=== PATIENT | male | born 1985 | race Caucasian/White ===

== ENCOUNTER 2017-01-24 17:25 | Emergency (ER) | payer MEDICAID ==
[2017-01-24] MEDS ORDERED: MAG HYDROX/AL HYDROX/SIMETH 30 ML UDC PO STA (18:25)
[2017-01-24] MEDS ORDERED: HYDROmorphone 1 MG/ML SYRINGE IVP STA (18:25)
[2017-01-24] MEDS ORDERED: DIPHENOX/ATROPINE 2.5/0.025 MG TABLET PO STA (18:25)
[2017-01-24] MEDS ORDERED: SODIUM CHLORIDE 0.9% 1,000 ML IV ONE ×2 (18:25→18:28)
[2017-01-24] MEDS ORDERED: ONDANSETRON 4 MG/2 ML VIAL IVP STA (18:25)
[2017-01-24] MEDS ORDERED: KETOROLAC 60 MG/2 ML VIAL IVP STA (18:25)
[2017-01-24] MEDS ORDERED: KETOROLAC 30 MG/ML VIAL ONE (18:34)
[2017-01-24] MEDS ORDERED: HYDROmorphone 1 MG/ML SYRINGE ONE (18:34)
[2017-01-24] MEDS ORDERED: MAG HYDROX/AL HYDROX/SIMETH 30 ML UDC ONE (18:35)
[2017-01-24] MEDS ORDERED: ONDANSETRON 4 MG/2 ML VIAL ONE (18:35)
[2017-01-24] MEDS ORDERED: DIPHENOX/ATROPINE 2.5/0.025 MG TABLET PO ONE (18:35)
[2017-01-24] MEDS ORDERED: HYDROcod/ACET 5/325 Prepack 6 PO ONE ×2 (20:45→21:10)
[2017-01-24] MEDS ORDERED: ONDANSETRON ODT 4 MG Prepack 2 TL PRN (20:45)
[2017-01-24] MEDS ORDERED: DEXAMETHASONE 10 MG/ML VIAL IVP STA (21:06)
[2017-01-24] MEDS ORDERED: ONDANSETRON ODT 4 MG Prepack 2 TL ONE (21:10)
== END 2017-01-24 21:22 | disposition home or self-care (01) ==
DX: E86.0 Dehydration (principal); R07.89 Other chest pain; J06.9 Acute upper respiratory infection, unspecified
CPT/HCPCS: 36415; 71020; 76705; 80053; 83690; 96361; 96374; 96375; 99283; 99284; A9270; J1170

== ENCOUNTER 2018-08-30 13:33 | Outpatient (CLI) | payer MEDICAID ==
[2018-08-31 12:22] LABS: HEPATITIS C ANTIBODY NON-REACTIVE (NON-REACTIVE)
[2018-08-31 13:26] LABS: HIV AG/AB 4TH GEN NON-REACTIVE (NON-REACTIVE)
== END 2018-08-30 13:34 | disposition home or self-care (01) ==
LOC: LAB.F 13:33
PROVIDERS: ATTEND Hospitalist
DX: Z11.3 Encounter for screening for infections with a predominantly sexual mode of transmission (principal)
CPT/HCPCS: 36415; 86780; 86803; 87389